=== PATIENT | male | born 1955 | race Caucasian/White ===

== ENCOUNTER → 2017-07-26 | Outpatient (CLI) | payer BC ==
[~2017-07-26] MED LIST: IOPAMIDOL (ISOVUE-300) 100 ML BTL ONE
== END ==
LOC: FIMAGING 09:06
PROVIDERS: ATTEND Internal Medicine Gastroenterology
DX: K91.89 Other postprocedural complications and disorders of digestive system (principal); K60.3 Anal fistula; K50.80 Crohn's disease of both small and large intestine without complications
CPT/HCPCS: Q9967

== ENCOUNTER → 2018-03-16 | Outpatient (CLI) | payer BC ==
[~2018-03-16] MED LIST changes: +GADOBUTROL 10 ML VIAL IVP ONE; +GLUCAGON HCL 0.3 MG in SYRINGE 0.3 ML IVP ONE; -IOPAMIDOL (ISOVUE-300) 100 ML BTL ONE
== END ==
LOC: FIMAGING 14:55
PROVIDERS: ATTEND Internal Medicine Gastroenterology
DX: K50.013 Crohn's disease of small intestine with fistula (principal); R19.05 Periumbilic swelling, mass or lump; K60.3 Anal fistula
CPT/HCPCS: A9585; J1610